=== PATIENT | male | born 1985 | race Caucasian/White ===

== ENCOUNTER 2018-03-24 16:32 | Emergency (ER) | payer MEDICAID ==
[2018-03-24] MEDS: DIPHTH/TET/ACEL PERTUSS (ADULT) 0.5 ML VIAL IM* (17:59)
[2018-03-24] MEDS: ACETAMINOPHEN 325 MG TAB PO (18:09)
== END 2018-03-24 18:32 | disposition home or self-care (01) ==
LOC: FTE 16:32
DX: S01.111A Laceration without foreign body of right eyelid and periocular area, initial encounter (principal); W26.8XXA Contact with other sharp object(s), not elsewhere classified, initial encounter; Y92.9 Unspecified place or not applicable; Z23 Encounter for immunization
CPT/HCPCS: 12013; 90471; 90715; 99283-25

== ENCOUNTER 2018-03-29 15:03 | Emergency (ER) | payer SELFPAY, MEDICAID | END 2018-03-29 17:50 | disposition left against medical advice (07) | LOC: FTE 15:03 | DX: Z53.21 Procedure and treatment not carried out due to patient leaving prior to being seen by health care provider (principal) ==

== ENCOUNTER 2018-04-07 14:44 | Emergency (ER) | payer MEDICAID | END 2018-04-07 18:18 | disposition home or self-care (01) | LOC: FTE 14:44 | DX: Z48.02 Encounter for removal of sutures (principal) | CPT/HCPCS: 99281; Z7502 ==